=== PATIENT | male | born 1955 | race Caucasian/White ===

== ENCOUNTER 2019-06-08 10:44 | Emergency (ER) | payer OTHER, SELFPAY ==
[2019-06-08 10:52] VITALS: BP 137/53; PULSE 66; RESP 20; TEMP 36.9; O2SAT 99
--- NOTE | 2019-06-08 11:07 | ED.URI ---
HPI - URI/Sore Throat General Chief Complaint: Upper Respiratory Infection Stated Complaint: aches andcough Time Seen by Provider: 06/08/19 11:07 Source: patient Mode of arrival: ambulatory Limitations: no limitations History of Present Illness HPI Narrative: Roland Salas is a 63 yo male with a PMH of diabetes, GERD, cirrhosis, HTN, who comes to urgent care with complaints of cough and body aches. No fever. Blood sugar has been fluctuating over the last 24 hours Related Data Home Medications Medication Instructions Recorded Confirmed insulin asp prt-insulin aspart 1 sliding scale dose SUBCUT 06/08/19 06/08/19 [Novolog Mix 70-30 U-100 Insuln] USEASDIRECTD insulin detemir U-100 [Levemir 40 unit SUBCUT QAM 06/08/19 06/08/19 U-100 Insulin] insulin detemir U-100 [Levemir 70 unit SUBCUT QPM 06/08/19 06/08/19 U-100 Insulin] lisinopril-hydrochlorothiazide 1 tablet PO DAILY 06/08/19 06/08/19 pantoprazole 40 mg PO HS 06/08/19 06/08/19 Allergies Allergy/AdvReac Type Severity Reaction Status Date / Time gabapentin AdvReac Unknown Dizziness Verified 06/08/19 11:13 meperidine AdvReac Unknown Vomiting Verified 06/08/19 11:13 rosuvastatin AdvReac Unknown Bradycardia Verified 06/08/19 11:13 Review of Systems Review of Systems: Narrative: CONSTITUTIONAL: Denies fever, chills, sweats. EYES: Denies visual changes, redness, discharge. ENT: has rhinorrhea, congestion, mild sore throat, otalgia. CARDIOVASCULAR: Denies chest pain, palpitations, edema. RESPIRATORY: Denies dyspnea, wheezing, mild cough GASTROINTESTINAL: Denies abdominal pain, nausea, vomiting, diarrhea. GENITOURINARY: Denies dysuria, hematuria, abnormal discharge SKIN: Denies rash or itching. NEUROLOGIC: Denies numbness, or focal weakness. PSYCHIATRIC: Denies anxiety or depression. [facility] Family History Family History Father Patient's father is in good health Sibling Patient's brother is in good health Family history of arthritis Social History Social History Smoking status: Never smoker Alcohol intake: never Comments At time of signature, I agree with nursing past medical, surgical, social and family history. There is no relevant family history pertinent to the presenting complaint. Exam Narrative: Exam Narrative: GENERAL: This is a well-nourished, well-developed patient, in mild distress. Looks pale. Ill appearing HEAD: normocephalic, atraumatic. EYES: Sclera clear/white. Vision is grossly intact. EARS: External ears normal, n. Hearing grossly intact. NOSE: External nose normal with no obvious nasal discharge, nares without redness, no rhinorrhea. THROAT: Mucous membranes moist, posterior pharynx c erythema NECK: Neck supple, non-tender without lymphadenopathy, masses or thyromegaly. CARDIOVASCULAR: Regular rate and rhythm without murmurs, gallops, or rubs. RESPIRATORY: Clear to auscultation. Breath sounds equal bilaterally. No wheezes, rales, or rhonchi. GASTROINTESTINAL: Abdomen soft, non-tender, abdominal distention. SKIN: warm, intact with no suspicious lesions or rash, good texture and turgor. NEURO: awake, alert, and oriented to person, place and time. There were no obvious focal neurologic abnormalities. Steady gait EXTREMITIES: Normal range of motion. No edema. BACK: Nontender without deformity or crepitance. . Course Course Emergency Course: Influenza A+ Started on Tamiflu given prescription for Xofluza if affordable, cough medicine, Coricidin HP Vital Signs Vital signs: Vital Signs Temperature 98.4 F 06/08/19 10:52 Pulse Rate 66 06/08/19 10:52 Respiratory Rate 20 06/08/19 10:52 Blood Pressure 137/53 L 06/08/19 10:52 Pulse Oximetry 99 06/08/19 10:52 Temperature 98.4 F 06/08/19 10:52 Pulse Rate 66 06/08/19 10:52 Respiratory Rate 20 06/08/19 10:52 Blood Pressure 137/53 L 06/08/19
== END 2019-06-08 11:22 | disposition home or self-care (01) ==
PROVIDERS: Emergency Provider Nurse Practitioner; PCP Family Medicine
DX: J10.1 Influenza due to other identified influenza virus with other respiratory manifestations (principal); E11.9 Type 2 diabetes mellitus without complications; K21.9 Gastro-esophageal reflux disease without esophagitis; I10 Essential (primary) hypertension; K74.60 Unspecified cirrhosis of liver
CPT/HCPCS: 87804; 99213; G0463

== ENCOUNTER 2019-08-07 09:47 | Outpatient (CLI) | payer OTHER, SELFPAY ==
[2019-08-07 10:21] LABS: Alanine Aminotransferase 39 U/L (4-50); Albumin Level 3.6 g/dL (3.5-5.1); Alkaline Phosphatase 89 U/L (38-126); Aspartate Amino Transferase 43 U/L (17-59); Bilirubin,Total 1.2 mg/dL (0.2-1.3); Blood Urea Nitrogen 17 mg/dL (9-20); Calcium 8.5 mg/dL (8.4-10.2); Carbon Dioxide 24 mmol/L (22-30); Chloride 106 mmol/L (98-107); Estimated Glomerular Filt Rate > 60; Glucose 218 mg/dL (75-110); Potassium 4.3 mmol/L (3.4-5.0); Sodium 135 mmol/L (137-145)
[2019-08-07 10:30] LABS: Hemoglobin A1C 9.6 % (<5.7)
[2019-08-07 10:34] LABS: Erythrocyte Sedimentation Rate 122 mm/hr (0-20)
== END 2019-08-07 09:48 | disposition home or self-care (01) ==
PROVIDERS: PCP Family Medicine; Visit Provider Family Medicine
DX: E11.9 Type 2 diabetes mellitus without complications (principal); I10 Essential (primary) hypertension; R11.0 Nausea
CPT/HCPCS: 36415; 80053; 83036; 85652

== ENCOUNTER 2019-08-10 09:42 | Outpatient (CLI) | payer OTHER, SELFPAY ==
--- NOTE | ~2019-08-10 | CT_ITS ---
EXAMINATION: CT abdomen pelvis w con DATE: 08/10/2019 10:23 INDICATION: Nausea. Weight loss. Elevated ESR. TECHNIQUE: Computed tomography (CT) of the abdomen and pelvis was performed with 100 cc Omnipaque 350 intravenous contrast. Automated exposure control and iterative reconstruction technique were employe d. Exam dose: 886.93 mGy-cm total exam DLP. COMPARISON: None. FINDINGS: The lung bases are clear. Normal heart size. No pericardial or pleural effusion. There is diffuse heterogeneous density of the liver. There is hepatic surface nodularity. The finding s are consistent with cirrhosis. The gallbladder is present. No bile duct or pancreatic duct dilatation is noted. No pancreatic mass l esion or calcification. There is splenomegaly, spleen measuring approximately 17.7 cm height. Normal morphology of the adrenal glands. 7 mm right renal cortical cyst. No solid renal space-occupying mass lesion or urinary tract calculus or hydroureteronephrosis is detected. There is atherosclerotic calcification of the abdominal aorta and branches; no abdominal aortic aneur ysm. No intraperitoneal or retroperitoneal or pelvic mass lesion or adenopathy or ascites. There is prostate enlargement and calcification and mild diffuse bladder wall thickening. There are s mall nonspecific free fluid collection in the lower dependent pelvis. No CT evidence of appendicitis.. Minimal diverticulosis of the colon; no CT evidence of diverticuliti s. No bowel obstruction or intraperitoneal free air. Small fat-containing umbilical hernia. Small right inguinal fat-containing hernia. Included skeletal structures are unremarkable. IMPRESSION: Cirrhosis and splenomegaly Reviewed, dictated and finalized at [facility]. Reviewed, dictated and finalized at [facility]. IMPRESSION: Cirrhosis and splenomegaly
[2019-08-10 10:58] LABS: Basophils Percent Auto 0.6 % (0.2-1.2); Eosinophils Absolute Auto 0.1 K/mm3 (0-0.3); Eosinophils Percent Auto 2.7 % (0-4.4); Hematocrit 33.8 % (42.0-52.0); Hemoglobin 11.7 g/dL (14.0-18.0); Immature Granulocyte Absolute 0.02 K/mm3 (0.00-0.031); Immature Granulocyte Percent A 0.6 % (0-0.5); Lymphocytes Absolute Auto 0.81 K/mm3 (0.9-3.2); Lymphocytes Percent Auto 24.4 % (18.3-44.2); Mean Corpuscular HGB Conc 34.6 g/dl (32-36); Mean Corpuscular Hemoglobin 30.6 pg (26-34); Mean Corpuscular Volume 88.5 fl (80-100); Mean Platelet Volume 12.1 fl (7.4-10.4); Monocytes Absolute Auto 0.3 K/mm3 (0.1-0.6); Neutrophils Absolute Auto 2.1 K/mm3 (1.3-6.7); Neutrophils Percent Auto 62.7 % (45.5-73.1); Platelet Count Result 70 k/mm3 (150-375); Red Blood Count 3.82 M/mm3 (4.6-6.20); Red Cell Distribution Width 12.8 % (11.5-14.5); White Blood Count 3.3 K/mm3 (4.5-10.0)
[2019-08-10 11:11] LABS: Ammonia 75 umol/L (9-30)
[2019-08-15 16:23] LABS: GGT 100 U/L (3-70)
== END 2019-08-10 09:43 | disposition home or self-care (01) ==
PROVIDERS: PCP Family Medicine; Visit Provider Family Medicine
DX: K74.60 Unspecified cirrhosis of liver (principal); R11.0 Nausea; R63.4 Abnormal weight loss; R70.0 Elevated erythrocyte sedimentation rate; R25.1 Tremor, unspecified; I10 Essential (primary) hypertension; R16.1 Splenomegaly, not elsewhere classified
CPT/HCPCS: 36415; 74177; 82140; 82977; 85025; Q9967

== ENCOUNTER 2019-08-27 14:03 | Emergency (ER) | payer OTHER, SELFPAY ==
--- NOTE | ~2019-08-27 | XR_ITS ---
EXAMINATION: XR ribs LT 2V w CXR 2V INDICATION: Left rib pain TECHNIQUE: Frontal and lateral views of the chest and 3 views of the left ribs were obtained. COMPARISON: None. FINDINGS: The lungs are free of acute opacities. There is no pleural effusion or pneumothorax. The ca rdiomediastinal silhouette is normal. The visualized bones and soft tissues are unremarkable. No disp laced rib fracture is identified. IMPRESSION: 1. No acute cardiopulmonary abnormality or evidence of displaced rib fracture. Reviewed, dictated and finalized at location [facility].
[2019-08-27 14:10] VITALS: BP 141/63; PULSE 71; RESP 15; TEMP 37.5; O2SAT 97
[2019-08-27 14:14] VITALS: RESP 17; O2SAT 97
--- NOTE | 2019-08-27 14:35 | PC.NURSE ---
PT BACK FROM RADIOLOGY AT THIS TIME.
--- NOTE | 2019-08-27 15:26 | ED.GENADULT ---
HPI - General Adult General Chief complaint: Unspecified Stated complaint: rib pain Time Seen by Provider: 08/27/19 15:06 Source: patient Mode of arrival: ambulatory Limitations: no limitations History of Present Illness HPI narrative: This patient is a 63 year old male who presents for evaluation of left rib pain. Patient states prior to arrival he tripped and he fell onto his left side. He states he fell onto his left arm and rib. His only complaint of pain to left lateral rib with movement and inspiration. He denies hitting his head or LOC. He does not take anticoaugulations. He denies sob. Related Data Home Medications Medication Instructions Recorded Confirmed lisinopril-hydrochlorothiazide 1 tablet PO DAILY 06/08/19 06/17/19 Allergies Allergy/AdvReac Type Severity Reaction Status Date / Time gabapentin AdvReac Unknown Dizziness Verified 08/27/19 14:17 meperidine AdvReac Unknown Vomiting Verified 08/27/19 14:17 rosuvastatin AdvReac Unknown Bradycardia Verified 08/27/19 14:17 Review of Systems Review of Systems: All systems reviewed & are unremarkable except as noted in HPI and below Constitutional: Constitutional: Denies chills and Denies fever(s) Respiratory: Respiratory: Denies cough and Denies dyspnea Gastrointestinal: Gastrointestinal: Denies abdominal pain Musculoskeletal: Musculoskeletal: Denies back pain and Denies arthralgias PMFSH Past Medical History Medical History (Updated 08/27/19 @ 15:32 by Lucy Stephen MD) Cirrhosis Diabetes Diabetes with retinopathy 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 Esophageal varices GERD (gastroesophageal reflux disease) High cholesterol HTN (hypertension) Surgical History Surgical History (Updated 08/27/19 @ 20:00 by Lucy Stephen MD) Hx of appendectomy Hx of cholecystectomy Social History Social History (Updated 08/09/19 @ 20:40 by Lucy Kilpatrick MD) Social History: Smoking status: Never smoker Second hand tobacco smoke exposure: No Alcohol intake: former Substance use: never Substance use type: does not use Gender identity (if verbalized by the patient): Male Exam Narrative: Exam Narrative: GENERAL: Well-appearing, well-nourished, and in no acute distress. HEAD: Normocephalic, atraumatic EYES: PERRLA and EOMI, conjunctiva clear without discharge NECK: Supple, without lymphadenopathy or mass RESPIRATORY: No respiratory distress, Airway patent, Respirations non-labored, Clear to auscultation without rales, rhonchi or wheeze, TTP left anterior lateral rib HEART: Regular rate and rhythm. No murmur heard. Normal peripheral pulses. ABDOMEN: Soft, nontender, nondistended, normal active bowel sounds. No masses. No rebound or guarding, No organomegaly. EXTREMITIES: No edema, normal strength with full range of motion. SKIN: Warm, dry, normal color without rash NEURO: Alert and oriented x3. CN 2-12 grossly intact. No focal deficits. PSYCH: Normal mood and affect. Course Reevaluation(s) Reevaluation #1: I have discussed with patient that was not found to have displaced rib fracture but he likely does have broken ribs. Date: 08/27/19 Time: 15:29 Vital Signs Vital signs: Vital Signs Temperature 99.5 F 08/27/19 14:10 Pulse Rate 71 08/27/19 14:10 Respiratory Rate 15 08/27/19 14:10 Blood Pressure 141/63 H 08/27/19 14:10 Pulse Oximetry 97 08/27/19 14:10 Temperature 99.1 F 08/27/19 15:42 Pulse Rate 65 08/27/19 15:42 Respiratory Rate 16 08/27/19 15:42 Blood Pressure 127/67 08/27/19 15:42 Pulse Oximetry 97 08/27/19 15:42 Medical Decision Making Vital Signs Vital Signs: Vital Signs Temperature 99.5 F 08/27/19 14:10 Pulse Rate 71 08/27/19 14:10 Respiratory Rate 15 08/27/19 14:10 Blood Pressure 141/63 H 08/27/19 14:10 Pulse Oximetry 97 08/27/19 14:10 Temperature 99.1 F 08/27/19 15:42 Pulse Rate 65 08/27/19 15:42 Res
[2019-08-27 15:42] VITALS: BP 127/67; PULSE 65; RESP 16; TEMP 37.3; O2SAT 97
== END 2019-08-27 16:04 | disposition home or self-care (01) ==
PROVIDERS: Emergency Provider General Practice; PCP Family Medicine
DX: R07.81 Pleurodynia (principal); K74.60 Unspecified cirrhosis of liver; E11.319 Type 2 diabetes mellitus with unspecified diabetic retinopathy without macular edema; K21.9 Gastro-esophageal reflux disease without esophagitis; I10 Essential (primary) hypertension; E78.00 Pure hypercholesterolemia, unspecified
CPT/HCPCS: 71046; 71100; 99283

== ENCOUNTER 2019-10-18 17:07 | Outpatient (CLI) | payer OTHER, SELFPAY ==
[2019-10-18 17:56] LABS: Basophils Percent Auto 0.4 % (0.2-1.2); Eosinophils Absolute Auto 0.1 K/mm3 (0-0.3); Eosinophils Percent Auto 2.5 % (0-4.4); Hematocrit 34.2 % (42.0-52.0); Hemoglobin 11.5 g/dL (14.0-18.0); Immature Granulocyte Absolute 0.01 K/mm3 (0.00-0.031); Immature Granulocyte Percent A 0.2 % (0-0.5); Immature Platelet Fraction Pct 7.9 % (0.9-11.2); Lymphocytes Absolute Auto 0.79 K/mm3 (0.9-3.2); Lymphocytes Percent Auto 17.7 % (18.3-44.2); Mean Corpuscular HGB Conc 33.6 g/dl (32-36); Mean Corpuscular Hemoglobin 28.5 pg (26-34); Mean Corpuscular Volume 84.9 fl (80-100); Mean Platelet Volume 13.2 fl (7.4-10.4); Monocytes Absolute Auto 0.4 K/mm3 (0.1-0.6); Monocytes Percent Auto 9.2 % (2.6-8.5); Neutrophils Absolute Auto 3.1 K/mm3 (1.3-6.7); Platelet Count Result 83 k/mm3 (150-375); Red Blood Count 4.03 M/mm3 (4.6-6.20); Red Cell Distribution Width 14.1 % (11.5-14.5); White Blood Count 4.5 K/mm3 (4.5-10.0)
[2019-10-18 18:05] LABS: Ammonia 46 umol/L (9-30)
[2019-10-18 18:05] LABS: Creatine Kinase 73 U/L (55-170); Hemoglobin A1C 9.4 % (<5.7)
[2019-10-18 18:32] LABS: Erythrocyte Sedimentation Rate 92 mm/hr (0-20)
== END 2019-10-18 17:08 | disposition home or self-care (01) ==
LOC: ANHLAB 17:09
PROVIDERS: PCP Family Medicine; Visit Provider Family Medicine
DX: E11.3299 Type 2 diabetes mellitus with mild nonproliferative diabetic retinopathy without macular edema, unspecified eye (principal); M79.10 Myalgia, unspecified site; K70.30 Alcoholic cirrhosis of liver without ascites; D69.6 Thrombocytopenia, unspecified; R70.0 Elevated erythrocyte sedimentation rate; R16.1 Splenomegaly, not elsewhere classified
CPT/HCPCS: 36415; 82140; 82550; 83036; 85025; 85055; 85652

== ENCOUNTER 2019-10-23 15:02 | Outpatient (CLI) | payer OTHER, SELFPAY ==
[2019-10-23 15:26] LABS: Basophils Percent Auto 0.5 % (0.2-1.2); Eosinophils Absolute Auto 0.1 K/mm3 (0-0.3); Eosinophils Percent Auto 3.4 % (0-4.4); Immature Granulocyte Absolute 0.01 K/mm3 (0.00-0.031); Immature Granulocyte Percent A 0.2 % (0-0.5); Lymphocytes Absolute Auto 0.83 K/mm3 (0.9-3.2); Lymphocytes Percent Auto 20.1 % (18.3-44.2); Mean Corpuscular HGB Conc 33.3 g/dl (32-36); Mean Corpuscular Hemoglobin 27.9 pg (26-34); Mean Corpuscular Volume 83.6 fl (80-100); Mean Platelet Volume 12.5 fl (7.4-10.4); Monocytes Absolute Auto 0.4 K/mm3 (0.1-0.6); Monocytes Percent Auto 9.7 % (2.6-8.5); Neutrophils Absolute Auto 2.7 K/mm3 (1.3-6.7); Neutrophils Percent Auto 66.1 % (45.5-73.1); Platelet Count Result 73 k/mm3 (150-375); Red Blood Count 3.59 M/mm3 (4.6-6.20); Red Cell Distribution Width 13.8 % (11.5-14.5); White Blood Count 4.1 K/mm3 (4.5-10.0)
[2019-10-23 16:42] LABS: Iron 36 ug/dL (49-181)
[2019-10-23 16:46] LABS: Alanine Aminotransferase 34 U/L (4-50); Albumin Level 3.5 g/dL (3.5-5.1); Alkaline Phosphatase 98 U/L (38-126); Aspartate Amino Transferase 37 U/L (17-59); Bilirubin,Total 0.9 mg/dL (0.2-1.3); Blood Urea Nitrogen 20 mg/dL (9-20); Calcium 9.2 mg/dL (8.4-10.2); Carbon Dioxide 21 mmol/L (22-30); Chloride 102 mmol/L (98-107); Creatine Kinase 77 U/L (55-170); Estimated Glomerular Filt Rate > 60; Glucose 221 mg/dL (75-110); Lactate Dehydrogenase 357 U/L (313-618); Potassium 4.2 mmol/L (3.4-5.0); Sodium 132 mmol/L (137-145)
[2019-10-23 17:11] LABS: Percent Iron Saturation 9 % (20-50)
[2019-10-23 17:51] LABS: Folic Acid 15.2 ng/mL (2.76->20)
[2019-10-24 11:42] LABS: Erythrocyte Sedimentation Rate 81 mm/hr (0-20)
[2019-10-30 18:46] LABS: Alpha Fetoprotein Tumor Marker 3.5 ng/mL (<6.1)
== END 2019-10-23 15:03 | disposition home or self-care (01) ==
PROVIDERS: PCP Family Medicine; Visit Provider Internal Medicine Hematology & Oncology
DX: K70.30 Alcoholic cirrhosis of liver without ascites (principal); M62.50 Muscle wasting and atrophy, not elsewhere classified, unspecified site; D64.9 Anemia, unspecified
CPT/HCPCS: 36415; 80053; 82105; 82550; 82607; 82728; 82746; 83540; 83550; 83615; 84443; 85025; 85652

== ENCOUNTER 2019-10-31 08:02 | Outpatient (CLI) | payer OTHER, SELFPAY ==
--- NOTE | ~2019-10-31 | CT_ITS ---
EXAMINATION:CT chest w con DATE: 10/31/2019 08:34 INDICATION: Cough. TECHNIQUE: Computed tomography (CT) of the chest was performed with 75 mL Omnipaque 350 intravenous c ontrast. Automated exposure control and iterative reconstruction technique were employed. The dose-le ngth product (DLP) was 407.80 mGy-cm. COMPARISON: CT abdomen and pelvis 08/10/2019 FINDINGS: There is no pneumonia or pleural effusion. The heart size is normal. There are coronary art compa calcifications. No pericardial effusion. The liver demonstrates surface nodularity, consistent wi th cirrhosis. There is mild splenomegaly, consistent with portal venous hypertension. Paraesophageal varices are noted. There is a paraumbilical portacaval shunt. There is mild thoracic spondylosis. IMPRESSION: 1. Cirrhosis of the liver with portal venous hypertension. Reviewed, dictated and finalized at location [facility].
== END 2019-10-31 08:03 | disposition home or self-care (01) ==
PROVIDERS: PCP Family Medicine; Visit Provider Internal Medicine Hematology & Oncology
DX: R05 Cough (principal); K70.30 Alcoholic cirrhosis of liver without ascites
CPT/HCPCS: 71260; Q9967

== ENCOUNTER 2019-11-17 01:55 | Outpatient (CLI) | payer OTHER, SELFPAY ==
[2019-11-17 22:22] LABS: SARS-CoV-2 RNA PCR Negative
== END 2019-11-17 01:56 | disposition home or self-care (01) ==
LOC: ANHCOVIDDT 01:56
PROVIDERS: PCP Family Medicine; Visit Provider Internal Medicine Gastroenterology
DX: Z01.812 Encounter for preprocedural laboratory examination (principal); Z20.828 Contact with and (suspected) exposure to other viral communicable diseases
CPT/HCPCS: 87635; C9803; U0003

== ENCOUNTER 2019-11-20 04:21 | Day surgery (SDC) | payer MEDICARE, OTHER, SELFPAY ==
[2019-11-14 14:48] VITALS: BMI 28.4
[2019-11-20 06:40] LABS: Glucose Point of Care 234 (65-105)
[2019-11-20] MEDS: LACTATED RINGERS 1,000 ML 150 ML IV CONT (06:43)
[2019-11-20 06:45] VITALS: BP 150/60; PULSE 86; RESP 18; TEMP 37; O2SAT 98
--- NOTE | 2019-11-20 07:01 | WPDANESEPPF ---
Anes - Initial Pre Proc Eval Procedure: Operation Date: 11/20/19 07:30 Proposed Procedures p Esophagogastroduodenoscopy & Screening Colonoscopy - John Whitaker MD Date/Time: 11/20/19 07:01 Surgeon: John Whitaker MD Pre Op Diagnosis: varices, neoplasm screening Patient Data Age: 63 Gender: M Height: 5 ft 10 in Weight: 89.3 kg Last Vital Signs Temp 98.6 F 11/20/19 06:45 Pulse 86 11/20/19 06:45 Resp 18 11/20/19 06:45 BP 150/60 H 11/20/19 06:45 Pulse Ox 98 11/20/19 06:45 Allergies Allergy/AdvReac Type Severity Reaction Status Date / Time rosuvastatin Allergy Unknown Bradycardia Verified 11/20/19 06:33 [facility] AdvReac Severe nausea Verified 11/20/19 06:33 gabapentin AdvReac Unknown Dizziness Verified 11/20/19 06:33 meperidine AdvReac Unknown Vomiting Verified 11/20/19 06:33 Home Medications Medication Instructions Recorded Confirmed Type pantoprazole 40 mg tablet,delayed 40 mg PO HS #90 tablet 08/28/19 11/20/19 Rx release lisinopril 20 1 tablet PO DAILY #90 tablet 09/03/19 11/20/19 Rx mg-hydrochlorothiazide 12.5 mg tablet promethazine 25 mg tablet 25 mg PO TID PRN #30 tablet 09/10/19 11/20/19 Rx insulin aspart U-100 100 unit/mL See Rx Instructions SUB-Q TID #20 11/15/19 11/20/19 Rx (3 mL) subcutaneous pen ml insulin detemir U-100 100 unit/mL 70 unit SUB-Q BID 90 Days #126 ml 11/15/19 11/20/19 Rx (3 mL) subcutaneous pen lactulose 10 gram/15 mL oral 10 gm PO BID 90 Days #2700 ml 11/15/19 11/20/19 Rx solution Laboratory Tests 11/20/19 06:39 POC Capillary Glucose 234 mg/dl H mg/dl (65-105) Patient hx anesthesia problems: none Family hx anesthesia problems: none PMFSH Social History Social History (Updated 11/12/19 @ 09:35 by Day Benson) Social History: Smoking status: Never smoker Second hand tobacco smoke exposure: No Alcohol intake: former Substance use: never Substance use type: does not use Gender identity (if verbalized by the patient): Male Anes - Eval Final PreProcedure Day of Procedure 11/20/19 07:01 Patient weight: normal Heart: regular rate and rhythm Lungs: clear to auscultation Airway: Mallampati scale class III Neurological: alert and oriented Last oral intake: >/= 8 hours ASA classification: III Emergent: no Anesthetic plan: proceed Anesthesia type and monitoring: general GIVS and standard monitoring Informed Consent: The patient's anesthetic plan and its attendant risks and benefits were discussed with the patient/family/POA. Questions were solicited and answers provided to the satisfaction of the patient/family/POA.
--- NOTE | 2019-11-20 07:36 | PM.HPGS ---
History of Present Illness History of Present Illness Consent: Risks, benefits, and alternatives have been discussed and questions answered. Patient agrees to proceed with procedure. Chief complaint: varices, neoplasm screening Narrative: Roland Salas is a 63 year old male with history of cirrhosis and remote GIB, also needs colon screening Review of Systems Constitutional: Constitutional: Denies headache(s) and Denies weakness Eyes: Eyes: Denies blurry vision ENT: Reports Normal hearing present, Denies headache(s) and Denies neck pain Cardiovascular: Cardiovascular: Denies chest pain and Denies dyspnea Respiratory: Respiratory: Denies dyspnea Gastrointestinal: Gastrointestinal: Reports no additional gastrointestinal complaints Genitourinary: Genitourinary: Denies dysuria Musculoskeletal: Musculoskeletal: Denies neck pain Integumentary/Breasts: Skin/Breast: Denies dry skin Neurologic: Reports Normal hearing present, Denies headache(s) and Denies weakness Psychiatric: Psychiatric: Denies anxiety Endocrine: Endocrine: Denies change in body appearance Hematologic/Lymphatic: Hematologic/Lymphatic: Denies easy bleeding Allergic/Immunologic: Allergic/Immunologic: Denies urticaria [facility] Social History Social History (Updated 11/12/19 @ 09:35 by Day Benson) Social History: Smoking status: Never smoker Second hand tobacco smoke exposure: No Alcohol intake: former Substance use: never Substance use type: does not use Gender identity (if verbalized by the patient): Male Meds Home Medications and Allergies Home Medications Medication Instructions Recorded Confirmed Type pantoprazole 40 mg tablet,delayed 40 mg PO HS #90 tablet 08/28/19 11/20/19 Rx release lisinopril 20 1 tablet PO DAILY #90 tablet 09/03/19 11/20/19 Rx mg-hydrochlorothiazide 12.5 mg tablet promethazine 25 mg tablet 25 mg PO TID PRN #30 tablet 09/10/19 11/20/19 Rx insulin aspart U-100 100 unit/mL See Rx Instructions SUB-Q TID #20 11/15/19 11/20/19 Rx (3 mL) subcutaneous pen ml insulin detemir U-100 100 unit/mL 70 unit SUB-Q BID 90 Days #126 ml 11/15/19 11/20/19 Rx (3 mL) subcutaneous pen lactulose 10 gram/15 mL oral 10 gm PO BID 90 Days #2700 ml 11/15/19 11/20/19 Rx solution Allergies Allergy/AdvReac Type Severity Reaction Status Date / Time rosuvastatin Allergy Unknown Bradycardia Verified 11/20/19 06:33 dulaglutide [From Trul[facility]] AdvReac Severe nausea Verified 11/20/19 06:33 gabapentin AdvReac Unknown Dizziness Verified 11/20/19 06:33 meperidine AdvReac Unknown Vomiting Verified 11/20/19 06:33 Vital Signs Vital Signs - 24 hr 11/20/19 06:45 Temperature 98.6 F Pulse Rate 86 Respiratory Rate 18 Blood Pressure 150/60 H Pulse Oximetry 98 Exam Const: General: comfortable and no acute distress HENMT: General nose exam: Normal nares present Eyes: General: appearance normal, both eyes and all related structures Neck: Neck: no JVD Resp: Auscultation: clear to auscultation bilaterally Cardio: Rate: regular rate Rhythm: regular rhythm GI: Inspection: non-distended GI Palp: Yes Soft to palpation Skin: General skin exam: normal color Neuro: General: gait normal Speech: normal speech Extrem: General: normal to inspection Psych: Mental Status: mental status grossly normal Assessment and Plan Assessment and plan (1) Cirrhosis: Code(s): K74.60 - Unspecified cirrhosis of liver Status: Acute Assessment and Plan: will proceed with egd to assess if varices (2) 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
[2019-11-20 08:15] VITALS: BP 127/61; PULSE 75; RESP 23; O2SAT 98
[2019-11-20 08:25] VITALS: BP 134/68; PULSE 72; RESP 20; O2SAT 99
[2019-11-20 08:35] VITALS: BP 150/72; PULSE 74; RESP 16; O2SAT 100
[2019-11-20 08:48] LABS: Glucose Point of Care 229 (65-105)
== END 2019-11-20 08:56 | disposition home or self-care (01) ==
PROVIDERS: PCP Family Medicine; Visit Provider Internal Medicine Gastroenterology
PROC: 0DJ08ZZ Inspection of Upper Intestinal Tract, Via Natural or Artificial Opening Endoscopic (ICD-10-PCS; CPT 43235; principal; 2019-11-20 07:30)
DX: Z12.11 Encounter for screening for malignant neoplasm of colon (principal); D12.2 Benign neoplasm of ascending colon; K64.8 Other hemorrhoids; K74.60 Unspecified cirrhosis of liver; E11.3299 Type 2 diabetes mellitus with mild nonproliferative diabetic retinopathy without macular edema, unspecified eye; D69.6 Thrombocytopenia, unspecified; K29.70 Gastritis, unspecified, without bleeding; K31.7 Polyp of stomach and duodenum
CPT/HCPCS: 43235; 45380; 88305; J2704; J7120

== ENCOUNTER 2019-12-19 11:15 | Outpatient (CLI) | payer OTHER, SELFPAY ==
--- NOTE | ~2019-12-19 | US_ITS ---
US right upper quadrant INDICATION: Cirrhosis PROCEDURE: Realtime right upper abdominal ultrasound. COMPARISON: No prior studies for comparison. FINDINGS: The pancreas is normal without focal mass or pancreatic ductal dilation. Liver echotexture is diffusely heterogeneous with nodular liver surface, compatible with cirrhosis. There is probable mild intrahepatic biliary dilatation. There is normal directional flow in the portal vein. The gallbladder is normal without stones, gallbladder wall thickening or pericholecystic fluid. Comm on bile duct measures 5 mm. No sonographic Felix's sign. IMPRESSION: 1: Coarse and heterogeneous echotexture with nodular liver surface, compatible with cirrhosis. Probab le mild intrahepatic biliary dilatation. Reviewed, dictated and finalized at [facility]. IMPRESSION: 1: Coarse and heterogeneous echotexture with nodular liver surface, compatible with cirrhosis. Probable mild intrahepatic biliary dilatation.
[2019-12-19 12:06] LABS: Basophils Percent Auto 0.8 % (0.2-1.2); Eosinophils Absolute Auto 0.2 K/mm3 (0-0.3); Eosinophils Percent Auto 3.9 % (0-4.4); Hematocrit 34.2 % (42.0-52.0); Immature Granulocyte Absolute 0.03 K/mm3 (0.00-0.031); Immature Granulocyte Percent A 0.8 % (0-0.5); Lymphocytes Absolute Auto 0.79 K/mm3 (0.9-3.2); Lymphocytes Percent Auto 20.4 % (18.3-44.2); Mean Corpuscular HGB Conc 32.2 g/dl (32-36); Mean Corpuscular Hemoglobin 26.2 pg (26-34); Mean Corpuscular Volume 81.4 fl (80-100); Mean Platelet Volume 11.4 fl (7.4-10.4); Monocytes Absolute Auto 0.3 K/mm3 (0.1-0.6); Neutrophils Absolute Auto 2.6 K/mm3 (1.3-6.7); Neutrophils Percent Auto 66.1 % (45.5-73.1); Platelet Count Result 79 k/mm3 (150-375); White Blood Count 3.9 K/mm3 (4.5-10.0)
[2019-12-19 12:19] LABS: Ammonia 68 umol/L (9-30)
[2019-12-19 12:20] LABS: Hemoglobin A1C 8.5 % (<5.7)
[2019-12-19 12:22] LABS: Alanine Aminotransferase 43 U/L (4-50); Albumin Level 3.7 g/dL (3.5-5.1); Alkaline Phosphatase 99 U/L (38-126); Anion Gap 7 mmol/L (8-16); Aspartate Amino Transferase 60 U/L (17-59); Bilirubin,Total 1.8 mg/dL (0.2-1.3); Blood Urea Nitrogen 18 mg/dL (9-20); CRP < 0.5 mg/dL (<1.0); Calcium 8.9 mg/dL (8.4-10.2); Carbon Dioxide 24 mmol/L (22-30); Chloride 106 mmol/L (98-107); Estimated Glomerular Filt Rate > 60; Glucose 228 mg/dL (75-110); Potassium 4.2 mmol/L (3.4-5.0); Sodium 137 mmol/L (137-145)
[2019-12-19 14:12] LABS: Erythrocyte Sedimentation Rate 67 mm/hr (0-20)
== END 2019-12-19 11:16 | disposition home or self-care (01) ==
PROVIDERS: Physician Assistant; PCP Family Medicine; Visit Provider Internal Medicine Gastroenterology
DX: K74.60 Unspecified cirrhosis of liver (principal); D69.6 Thrombocytopenia, unspecified; R70.0 Elevated erythrocyte sedimentation rate; I10 Essential (primary) hypertension; E11.3299 Type 2 diabetes mellitus with mild nonproliferative diabetic retinopathy without macular edema, unspecified eye
CPT/HCPCS: 36415; 76705; 80053; 82140; 83036; 85025; 85652; 86140

== ENCOUNTER 2019-12-31 11:09 | Observation (INO) | payer MEDICARE, OTHER, SELFPAY ==
--- NOTE | ~2019-12-31 | XR_ITS ---
XR forearm RT 2V DATE: 12/31/2019 13:48 INDICATION: Fall. Right arm injury, pain TECHNIQUE: AP and lateral views COMPARISON: None FINDINGS: There is a prominent dorsal olecranon process spur. There is osteoarthritis at the elbow rosie int. No fracture or dislocation, periosteal reaction or bone destruction. Normal alignment at the elbow an d wrist joints. Arterial calcifications. 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
--- NOTE | ~2019-12-31 | NM_ITS ---
EXAM: NM gastric emptying study DATE: 01/01/2020 13:18 INDICATION: Vomiting. Diabetes. TECHNIQUE: A gastric emptying study was performed using the methodology of Maddie SOMERS, et al. J Nucl Med 2007; 48:568-572. The patient was given a meal consisting of 2 scrambled eggs labeled with 1.024 mCi Tc-99m sulfur colloid, 2 slices of toast, two packages of jam, and approximately 120 mL of water . Simultaneous anterior and posterior 1-min images of the abdomen were obtained with the patient supi ne at multiple time points over a total period of 4 hours. The geometric mean of anterior and posteri or views was determined, and the percentage retention was calculated for each time point. COMPARISON: CT abdomen and pelvis 08/10/2019 FINDINGS: Gastric retention of the radiotracer-labeled meal was 46%, 27%, and 6% at the 1-hour, 2-ho ur, and 4-hour time points, respectively. With this technique, apparent rapid gastric emptying is sug gested by <30% gastric retention at 1 hour. Delayed gastric emptying is defined by gastric retention of >90% at 1 hour, >60% retention at 2 hours, or >10% retention at 4 hours. IMPRESSION: 1. Normal gastric emptying. Reviewed, dictated and finalized at location A. IMPRESSION: 1. Normal gastric emptying.
--- NOTE | ~2019-12-31 | XR_ITS ---
XR hip LT 2V w AP pelvis DATE: 12/31/2019 13:48 INDICATION: Fall. Left hip pain. TECHNIQUE: AP pelvis. AP and lateral views of left hip COMPARISON: None FINDINGS: Moderate osteopenia. No pelvic fracture or bone destruction is detected. Normal alignment a t the pubic symphysis and sacroiliac joints. The hip joint spaces are symmetric and well preserved. No fracture or dislocation, avascular necrosis or bone destruction of the left hip. IMPRESSION: Moderate osteopenia No pelvic fracture or left hip fracture or dislocation Reviewed, dictated and finalized at location B.
[2019-12-31 11:16] VITALS: BP 150/65; PULSE 70; RESP 14; TEMP 36.6; O2SAT 100
[2019-12-31 11:34] LABS: Basophils Percent Auto 0.5 % (0.2-1.2); Eosinophils Absolute Auto 0.2 K/mm3 (0-0.3); Eosinophils Percent Auto 4.1 % (0-4.4); Hemoglobin 12.3 g/dL (14.0-18.0); Immature Granulocyte Absolute 0.01 K/mm3 (0.00-0.031); Immature Granulocyte Percent A 0.3 % (0-0.5); Immature Platelet Fraction Pct 6.4 % (0.9-11.2); Lymphocytes Absolute Auto 0.84 K/mm3 (0.9-3.2); Mean Corpuscular HGB Conc 33.2 g/dl (32-36); Mean Corpuscular Hemoglobin 27.5 pg (26-34); Mean Corpuscular Volume 82.8 fl (80-100); Mean Platelet Volume 12.6 fl (7.4-10.4); Monocytes Absolute Auto 0.3 K/mm3 (0.1-0.6); Monocytes Percent Auto 7.4 % (2.6-8.5); Neutrophils Absolute Auto 2.4 K/mm3 (1.3-6.7); Neutrophils Percent Auto 64.7 % (45.5-73.1); Platelet Count Result 82 k/mm3 (150-375); Red Blood Count 4.47 M/mm3 (4.6-6.20); Red Cell Distribution Width 20.1 % (11.5-14.5); White Blood Count 3.7 K/mm3 (4.5-10.0)
[2019-12-31 11:46] LABS: Ammonia 133 umol/L (9-30)
[2019-12-31 11:47] LABS: Alanine Aminotransferase 39 U/L (4-50); Albumin Level 3.8 g/dL (3.5-5.1); Alkaline Phosphatase 94 U/L (38-126); Anion Gap 8 mmol/L (8-16); Aspartate Amino Transferase 49 U/L (17-59); Bilirubin,Total 2.3 mg/dL (0.2-1.3); Blood Urea Nitrogen 19 mg/dL (9-20); Calcium 9.3 mg/dL (8.4-10.2); Carbon Dioxide 22 mmol/L (22-30); Chloride 108 mmol/L (98-107); Estimated CRCL calculation 109 ml/min; Estimated Glomerular Filt Rate > 60; Glucose 170 mg/dL (75-110); Lipase 113 U/L (23-300); Potassium 4.4 mmol/L (3.4-5.0); Sodium 138 mmol/L (137-145)
[2019-12-31 11:51] LABS: Add Urine Microscopic? YES; Appearance Urine Clear (Clear); Bacteria Urine Trace /hpf; Bilirubin Urine Negative (Negative); Blood Urine Negative (Negative); Color Urine Yellow (Yellow); Glucose Urine UA 2+ mg/dL (Negative); Ketones Urine Negative (Negative); Leukocyte Esterase Ur Negative LEU/UL (Negative); Mucus Urine Rare /lpf; Nitrate Urine Negative (Negative); Protein Urine Negative (Negative); RBC Urine 0-2 /hpf (0-2); Specific Grav Ur 1.014 (1.001-1.035); Squamous Epithelial Cell Urine Rare /hpf (Few); WBC Urine 0-3 /hpf
[2019-12-31 13:25] LABS: INR 1.2; Prothrombin Time 15.1 Seconds (11.1-14.7)
[2019-12-31 13:26] LABS: Partial Thromboplastin Time 33.1 SECONDS (22.3-36.8)
--- NOTE | 2019-12-31 13:33 | ED.GENADULT ---
HPI - General Adult General Chief complaint: Nausea/Vomiting/Diarrhea Stated complaint: THROWING UP DUE TO HIS LIVER AND STUFF Time Seen by Provider: 12/31/19 11:49 Source: patient History of Present Illness HPI narrative: Patient is a 64 y/o male complaining of nausea and vomiting for last 6 months. He states that he vomited 5-10 times during last 24 hours. His vomit is mostly yellow liquid. There is no abdominal pain or diarrhea. There is no alleviating or exacerbating factor. He has history of cirrhosis. He was seen by Dr. Bianka Brand in the past and he states that he was not told of any definitive cause for his vomiting. He can not keep meds down due to vomiting. Of note, he fell last week and he has left hip pain and right forearm pain. Related Data Allergies Allergy/AdvReac Type Severity Reaction Status Date / Time rosuvastatin Allergy Unknown Bradycardia Verified 12/24/19 11:04 dulaglutide [From [facility]] AdvReac Severe nausea Verified 12/24/19 11:04 gabapentin AdvReac Unknown Dizziness Verified 12/24/19 11:04 meperidine AdvReac Unknown Vomiting Verified 12/24/19 11:04 Review of Systems Constitutional: Constitutional: Denies chills, Denies fever(s), Denies headache(s) and Denies weakness Eyes: Eyes: Denies blurry vision ENT: Denies headache(s) and Denies neck pain Cardiovascular: Cardiovascular: Denies chest pain and Denies dyspnea Respiratory: Respiratory: Denies cough and Denies dyspnea Gastrointestinal: Gastrointestinal: Denies abdominal pain, Denies diarrhea, Reports nausea and Reports vomiting Genitourinary: Genitourinary: Denies hematuria and Denies dysuria Musculoskeletal: Musculoskeletal: Denies back pain, Denies neck pain and Reports other (left hip pain and right arm pain) Neurologic: Denies headache(s) and Denies weakness PMFSH Past Medical History Medical History Cirrhosis Diabetes Diabetes with retinopathy 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 Esophageal varices GERD (gastroesophageal reflux disease) High cholesterol HTN (hypertension) Surgical History Surgical History Hx of appendectomy Hx of cholecystectomy Family History Family History Father Patient's father is in good health Sibling Patient's brother is in good health Family history of arthritis Social History Social History Social History: Smoking status: Never smoker Second hand tobacco smoke exposure: No Alcohol intake: former Substance use: never Substance use type: does not use Gender identity (if verbalized by the patient): Male Spiritual care concerns: No Exam Const: General: no acute distress and well developed Orientation/consciousness: oriented to person, oriented to place, oriented to time and patient oriented x3 HENMT: Head: normocephalic Ears: external ears normal General nose exam: Normal external nose present Eyes: General: appearance normal, both eyes and all related structures Conjunctivae: conjunctivae normal Neck: Neck: normal visual inspection and full ROM Chest: Chest palpation & inspection: normal inspection of the chest and no tenderness Resp: Effort & Inspection: normal respiratory effort Auscultation: clear to auscultation bilaterally Cardio: Rate: regular rate Rhythm: regular rhythm GI: GI Palp: No abdominal tenderness and Yes Soft to palpation Skin: General skin exam: normal color and turgor normal Trauma: other (bruise on left buttock) Neuro: General: oriented to person, oriented to place, oriented to time and patient oriented x3 Cognition (Neuro): normal cognition Extrem: General: normal to inspection, full ROM and no pedal edema Psych: Appearance: grossly normal Mental Status: mental status grossly normal Affect: normal affect C
[2019-12-31] MEDS: METOCLOPRAMIDE HCL 10 MG TABLET PO (13:36)
[2019-12-31 14:58] VITALS: BP 142/70; PULSE 64; RESP 18; O2SAT 100
[2019-12-31] MEDS: LACTULOSE 20 GM/30 ML UDC PO ×2 (15:03→20:46)
[2019-12-31 15:51] VITALS: BP 142/70; PULSE 64; RESP 18; O2SAT 100
[2019-12-31 16:05] VITALS: BP 149/70; PULSE 65; RESP 16; TEMP 37.1; O2SAT 98
[2019-12-31 16:51] VITALS: PULSE 65; RESP 16; O2SAT 98; BMI 27.8
[2019-12-31 17:25] LABS: Glucose Point of Care 216 (65-105)
--- NOTE | 2019-12-31 17:25 | PC.NURSE ---
This patient, Roland Salas, was admitted to [facility] [place] Surg Room 313-01. Patient/family oriented to hospital policies and general routines including ID bracelet, bed and alarms, visiting hours, pain management, procedures, bathroom and other care routines, personal items, smoking policy, room service/diet, and visiting hours. Valuables list has been completed. Information on how to activate the Rapid Response Team has been discussed. Patient/Family are encouraged to report perceived risks to care and to ask questions if they do not understand what they are told or what they should do. PT ARRIVED AT [id number]
--- NOTE | 2019-12-31 19:39 | PM.IMHP ---
H&P: HPI History of Present Illness Date/Time: 12/31/19 19:39 Chief complaint: intractable vomiting Narrative: This is a 64 year old Diabetic male with known Cirrhosis which has been thought to be due to previous alcoholism who presented to the hospital with complaints of intermittent nausea and vomiting since June, increased generalized weakness, and multiple recent falls. The patient describes having days where he will get very nauseated and have multiple episodes of vomiting and then the next day he will feel better. The patient has already seen GI, Dr. Gibson for his vomiting and just had an EGD and colonoscopy about 1 month ago which were apparently normal at that time. The patient has been taking his home meds as prescribed. He denies any fevers, chills, coughing, shortness of breath, chest pain, abdominal pain, diarrhea, dysuria, or rectal bleeding. GI has been consulted by ER provider. He was evaluated in the ER today and routine labs demonstrated an elevated ammonia level of 133. He was treated with lactulose which he did keep down and on arrival to the floor the patient ate a salad and drank water without any nausea or vomiting. On my encounter with the patient he has no specific complaints any longer and states that his nausea and vomiting has resolved. The patient does have bruising to his left hip from a recent fall. He believes that he always has mild abdominal distension which hasn't changed recently. No other complaints. 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 Esophageal varices GERD (gastroesophageal reflux disease) High cholesterol HTN (hypertension) Surgical History Surgical History Hx of appendectomy Hx of cholecystectomy Family History Family History Father Patient's father is in good health Sibling Patient's brother is in good health Family history of arthritis Social History Social History Social History: Smoking status: Never smoker Second hand tobacco smoke exposure: No Alcohol intake: former Substance use: never Substance use type: does not use Gender identity (if verbalized by the patient): Male Spiritual care concerns: No Meds Home Medications and Allergies Home Medications Medication Instructions Recorded Confirmed Type pantoprazole 40 mg tablet,delayed 40 mg PO HS #90 tablet 08/28/19 12/31/19 Rx release lisinopril 20 1 tablet PO DAILY #90 tablet 09/03/19 12/31/19 Rx mg-hydrochlorothiazide 12.5 mg tablet insulin aspart U-100 100 unit/mL See Rx Instructions SUB-Q TID #20 11/15/19 12/31/19 Rx (3 mL) subcutaneous pen ml insulin detemir U-100 100 unit/mL 70 unit SUB-Q BID 90 Days #126 ml 11/15/19 12/31/19 Rx (3 mL) subcutaneous pen flash glucose scanning reader #1 each 12/06/19 12/24/19 Rx flash glucose sensor #2 each 12/06/19 12/24/19 Rx lactulose 10 gram/15 mL oral 10 gm PO BID 90 Days #2700 ml 12/11/19 12/31/19 Rx solution metoclopramide HCl 5 mg tablet 5 mg PO BID #60 tablet 12/24/19 12/31/19 Rx promethazine 25 mg tablet 25 mg PO TID PRN #60 tablet 12/24/19 12/31/19 Rx Allergies Allergy/AdvReac Type Severity Reaction Status Date / Time rosuvastatin Allergy Unknown Bradycardia Verified 12/24/19 11:04 [facility] Adv[facility]ac Severe nausea Verified 12/24/19 11:04 gabapentin AdvReac Unknown Dizziness Verified 12/24/19 11:04 meperidine AdvReac Unknown Vomiting Verified 12/24/19 11:04 Vital Signs Vital Signs - 24 hr 12/31/19 11:16 12/31/19 14:58 12/31/19 15:51 Temperature 36.6 C Pulse
[2019-12-31] MEDS: PANTOPRAZOLE 40 MG TABLET PO (20:46)
[2019-12-31] MEDS: METOCLOPRAMIDE HCL 5 MG TABLET PO (20:46)
[2019-12-31] MEDS: INSULIN DETEMIR 100 UNITS/ML 70 UNITS SUB-Q (20:50)
[2019-12-31 20:59] LABS: Glucose Point of Care 322 (65-105)
[2019-12-31 22:00] VITALS: BP 151/61; PULSE 67; RESP 16; TEMP 36.6; O2SAT 99
[2020-01-01] VITALS: BP 145/58; PULSE 69; RESP 16; TEMP 36.4; O2SAT 98
[2020-01-01 00:33] VITALS: BP 146/64; BP 156/58; PULSE 73; PULSE 80; RESP 16; O2SAT 100; O2SAT 98
[2020-01-01 06:00] VITALS: BP 125/62; PULSE 63; RESP 20; TEMP 37; O2SAT 99
[2020-01-01] MEDS: LACTULOSE 20 GM/30 ML UDC PO ×2 (06:32→15:08)
[2020-01-01 06:38] LABS: Basophils Percent Auto 0.4 % (0.2-1.2); Eosinophils Absolute Auto 0.1 K/mm3 (0-0.3); Eosinophils Percent Auto 3.5 % (0-4.4); Hematocrit 33.2 % (42.0-52.0); Hemoglobin 10.8 g/dL (14.0-18.0); Immature Granulocyte Absolute 0.01 K/mm3 (0.00-0.031); Immature Granulocyte Percent A 0.4 % (0-0.5); Lymphocytes Absolute Auto 0.79 K/mm3 (0.9-3.2); Lymphocytes Percent Auto 27.7 % (18.3-44.2); Mean Corpuscular HGB Conc 32.5 g/dl (32-36); Mean Corpuscular Hemoglobin 27.3 pg (26-34); Mean Corpuscular Volume 83.8 fl (80-100); Mean Platelet Volume 12.5 fl (7.4-10.4); Monocytes Absolute Auto 0.3 K/mm3 (0.1-0.6); Monocytes Percent Auto 9.8 % (2.6-8.5); Neutrophils Absolute Auto 1.7 K/mm3 (1.3-6.7); Neutrophils Percent Auto 58.2 % (45.5-73.1); Platelet Count Result 73 k/mm3 (150-375); Red Blood Count 3.96 M/mm3 (4.6-6.20); Red Cell Distribution Width 20.3 % (11.5-14.5); White Blood Count 2.9 K/mm3 (4.5-10.0)
[2020-01-01 06:51] LABS: Anion Gap 6 mmol/L (8-16); Blood Urea Nitrogen 26 mg/dL (9-20); Calcium 8.8 mg/dL (8.4-10.2); Carbon Dioxide 24 mmol/L (22-30); Chloride 106 mmol/L (98-107); Estimated CRCL calculation 95 ml/min; Estimated Glomerular Filt Rate > 60; Glucose 137 mg/dL (75-110); Magnesium 2.1 mg/dL (1.6-2.3); Potassium 3.9 mmol/L (3.4-5.0); Sodium 136 mmol/L (137-145)
[2020-01-01 08:00] VITALS: PULSE 63; RESP 20; O2SAT 99
[2020-01-01 08:32] LABS: Glucose Point of Care 130 (65-105)
[2020-01-01] MEDS: hydroCHLOROthiazide 12.5 MG CAPSULE PO (09:38)
[2020-01-01] MEDS: lisinopriL 20 MG TABLET PO (09:39)
[2020-01-01] MEDS: METOCLOPRAMIDE HCL 5 MG TABLET PO ×2 (09:39→18:28)
[2020-01-01 09:42] LABS: Ammonia 89 umol/L (9-30)
[2020-01-01] MEDS: INSULIN ASPART (*BKC) 100 UNITS/ML SUB-Q ×2 (12:17→18:26)
[2020-01-01 12:22] LABS: Glucose Point of Care 233 (65-105)
[2020-01-01] MEDS: rifAXIMin 550 MG TABLET PO (12:40)
[2020-01-01 14:00] VITALS: BP 151/76; PULSE 66; RESP 16; TEMP 36.3; O2SAT 99
--- NOTE | 2020-01-01 16:12 | PM.DS ---
DS: Admitting Diagnosis Admitting Diagnosis Admitting Diagnosis: intractable vomiting DS: Discharge Diagnosis Discharge Diagnosis (1) Nausea & vomiting: Qualifiers: Vomiting type: unspecified Vomiting Intractability: non-intractable Qualified Code(s): R11.2 - Nausea with vomiting, unspecified Code(s): R11.2 - Nausea with vomiting, unspecified Status: Resolved Assessment and Plan: ------resolved. Patient has had chronic intermittent nausea and vomiting. His gastric emptying study was normal today. This improved with the improvement of his hyperammonemia. He has known liver disease which is likely playing a factor. I also have asked him to keep a food journal to see if there is any pattern. He recently had an EGD and a colonoscopy with no issue. He should follow-up with GI. . (2) Hyperammonemia: Code(s): E72.20 - Disorder of urea cycle metabolism, unspecified Status: Acute Assessment and Plan: -----Continue Lactulose at the higher dose. 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 Continue home regimen (5) GERD (gastroesophageal reflux disease): Qualifiers: Esophagitis presence: esophagitis presence not specified Qualified Code(s): K21.9 - Gastro-esophageal reflux disease without esophagitis Code(s): K21.9 - Gastro-esophageal reflux disease without esophagitis Status: Chronic Assessment and Plan: -----continue Protonix. (6) HTN (hypertension): Qualifiers: Hypertension type: unspecified Qualified Code(s): I10 - Essential (primary) hypertension Code(s): I10 - Essential (primary) hypertension Status: Chronic Assessment and Plan: ------last blood pressure 151/76. Continue lisinopril and hydrochlorothiazide (7) Cirrhosis: Qualifiers: Hepatic cirrhosis type: alcoholic cirrhosis Ascites presence: with ascites Qualified Code(s): K70.31 - Alcoholic cirrhosis of liver with ascites Code(s): K74.60 - Unspecified cirrhosis of liver Status: Chronic Assessment and Plan: -----known, follow-up with GI. DS: Summary Hospital Course Reason for hospitalization: Intractable nausea vomiting Hospital Course: Patient is 64-year-old male who presented emergency room for nausea and vomiting intermittently throughout the last 6 months which seemed to be worse the last few days. Vitals in the ER were stable. CBC showed pancytopenia secondary to liver disease. BMP within normal limits with the exception of glucose 170. Ammonia 133, lipase 113. And bruising on his hip. Hip and pelvis x-ray was done which did not show any abnormality. Admitted to the hospitalist service and given lactulose. His ammonia and symptoms improved with this. He was started on rifaximin and saw GI. Dr. Gibson agreed with the plan. The patient plans to follow-up with him at discharge. Please see above for further details. Patient was educated about the worrisome signs and symptoms come back to emergency room for and was discharged in stable condition. Status at Discharge Functional status at discharge: independent ambulation Overall status at discharge: patient is back to baseline Time Spent with Patient Time attestation: Total time spent providing and/or coordinating discharge services:
--- NOTE | 2020-01-01 16:28 | WPDGICN ---
Assessment and Plan Assessment and plan (1) Encephalopathy due to ammonia: Code(s): T59.891A - Toxic effect of other specified gases, fumes and vapors, accidental (unintentional), initial encounter; G92 - Toxic encephalopathy Status: Acute Assessment and Plan: continue with lactulose, he is feeling much better now. Instructed to titrate to get 3-4 BM a day will add xifaxan as well (2) Cirrhosis: Qualifiers: Hepatic cirrhosis type: alcoholic cirrhosis Ascites presence: with ascites Qualified Code(s): K70.31 - Alcoholic cirrhosis of liver with ascites Code(s): K74.60 - Unspecified cirrhosis of liver Status: Chronic Assessment and Plan: probably COLUNGA (h/o DM, HTN), remote alcohol use more than [address] scan no HCC, EGD no more varices 2g na diet MELD score 11 he can follow up office in few more weeks (3) Diabetes: Qualifiers: Diabetes mellitus type: type 2 Diabetes mellitus intermediate school teacher insulin use: with intermediate school teacher use Diabetes mellitus complication status: without complication Qualified Code(s): E11.9 - Type 2 diabetes mellitus without complications; Z79.4 - moth exterminator (current) use of insulin Code(s): E11.9 - Type 2 diabetes mellitus without complications Status: Chronic Assessment and Plan: on insulin (4) Nausea & vomiting: Qualifiers: Vomiting type: unspecified Vomiting Intractability: non-intractable Qualified Code(s): R11.2 - Nausea with vomiting, unspecified Code(s): R11.2 - Nausea with vomiting, unspecified Status: Resolved Assessment and Plan: resolved, antiemetics prn gastric emptying study was normal (5) Hyperammonemia: Code(s): E72.20 - Disorder of urea cycle metabolism, unspecified Status: Acute (6) Thrombocytopenia: Code(s): D69.6 - Thrombocytopenia, unspecified Status: Acute Assessment and Plan: stable, from liver disease GI Consult Note Consult date/time: 01/01/20 16:28 Reason for consult: cirrhosis, nausea HPI: Roland Salas is a 64 year old male is my clinic patient that I have seen because cirrhosis, he used to be heavy drinker when much younger but quit about 35 years ago, denies illicits, hepatitis was negative. 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 I just performed EGD 11/2019 that did not show any varices, colonoscopy with TA polyp removed. He came to ER with more nausea than usual, also generalized weakness and history of falls. He also has DM on insulin, using lactulose because history of encephalopathy normally will have 2 BM a day. He was evaluated in the ER today andlabs demonstrated an elevated ammonia level of 133. Given lactulose and he is feeling much better, no more nausea and tolerated food. He is going home today. He also had gastric emptying study that was normal. Review of Systems Constitutional: Constitutional: Denies chills, Denies headache(s) and Reports lethargy Eyes: Eyes: Denies blurry vision ENT: Reports Normal hearing present, Denies headache(s) and Denies neck pain Cardiovascular: Cardiovascular: Denies chest pain and Denies dyspnea Respiratory: Respiratory: Denies dyspnea Gastrointestinal: Gastrointestinal: Reports no additional gastrointestinal complaints Genitourinary: Genitourinary: Denies dysuria Musculoskeletal: Musculoskeletal: Denies neck pain Integumentary/Breasts: Skin/Breast: Denies dry skin Neurologic: Reports Normal hearing present, Denies headache(s) and Denies weakness Psychiatric: Psychiatric: Denies anxiety Endocrine: Endocrine: Denies change in body appearance Hematologic/Lymphatic: Hematologic/Lymphatic: Denies easy bleeding Allergic/Immunologic: Allergic/Immunologic: Denies urticaria PMFSH Past Medical History Medical History Cirrhosis Diabetes Diabetes with retinopathy DM type 2 with diabetic background retinopa
[2020-01-01 18:04] LABS: Glucose Point of Care 257 (65-105)
[2020-01-01] MEDS: INSULIN DETEMIR 100 UNITS/ML 70 UNITS SUB-Q (18:27)
== END 2020-01-01 19:03 | disposition home or self-care (01) ==
LOC: ANHED 11:49 → ANH3MEDSUR 15:07
PROVIDERS: Emergency Medicine; Family Medicine; Physician Assistant; Admitting Provider Internal Medicine; Emergency Provider Emergency Medicine; PCP Family Medicine; Visit Provider Family Medicine
DX: R11.2 Nausea with vomiting, unspecified (principal); K70.31 Alcoholic cirrhosis of liver with ascites; E11.9 Type 2 diabetes mellitus without complications; K21.9 Gastro-esophageal reflux disease without esophagitis; E78.00 Pure hypercholesterolemia, unspecified; I10 Essential (primary) hypertension; M25.552 Pain in left hip; M79.631 Pain in right forearm; M19.021 Primary osteoarthritis, right elbow; M77.8 Other enthesopathies, not elsewhere classified; M85.852 Other specified disorders of bone density and structure, left thigh; W19.XXXA Unspecified fall, initial encounter; E72.20 Disorder of urea cycle metabolism, unspecified; D64.9 Anemia, unspecified; D69.6 Thrombocytopenia, unspecified
CPT/HCPCS: 36415; 73090; 73502; 78264; 80048; 80053; 81001; 82140; 83690; 83735; 85025; 85055; 85610; 85730; 99285; A9270; A9541; G0378; J1815

== ENCOUNTER 2020-02-25 13:51 | Emergency (ER) | payer MEDICARE, OTHER, SELFPAY ==
--- NOTE | ~2020-02-25 | XR_ITS ---
EXAMINATION: XR chest 1V portable DATE: 02/25/2020 15:03 INDICATION: Shortness of breath. COVID-19 positive. TECHNIQUE: A single frontal view of the chest was obtained. COMPARISON: Chest CT 10/31/2019, chest 2 views 08/27/2019 FINDINGS: The chest demonstrates clear lungs without pneumonia, pleural effusion, or pneumothorax. Th e heart size is normal. IMPRESSION: 1. No acute cardiopulmonary disease. Reviewed, dictated and finalized at location A. COMBER
[2020-02-25 13:57] VITALS: BP 136/47; PULSE 64; RESP 18; TEMP 36.9; O2SAT 99
[2020-02-25 14:35] VITALS: BP 159/60; PULSE 63; RESP 20; O2SAT 99
[2020-02-25] MEDS: SODIUM CHLORIDE 0.9% IV 1,000 ML 999 ML IV CONT ×2 (15:06→16:32)
--- NOTE | 2020-02-25 15:41 | ED.GENADULT ---
HPI - General Adult General Chief complaint: Upper Respiratory Infection <Saman Galo PA-C - Last Filed: 02/25/20 16:44> Stated complaint: SOB, COVID Positive, Sent by PCP <Saman Galo PA-C - Last Filed: 02/25/20 16:44> Time Seen by Provider: 02/25/20 14:27 <Saman Galo PA-C - Last Filed: 02/25/20 16:44> Source: patient and family <Saman Galo PA-C - Last Filed: 02/25/20 16:44> Mode of arrival: ambulatory <TOR Onofre Last Filed: 02/25/20 16:44> Limitations: no limitations <Saman Galo PA-C - Last Filed: 02/25/20 16:44> History of Present Illness HPI narrative: Patient is a 64-year-old male who presents with over 2 weeks of Covid symptoms patient is presenting with his who is also being seen patient notes he has some fatigue denies any vomiting diarrhea currently denies any chest pain notes some shortness of breath described as minimal in nature on arrival to emergency department is in the room in no distress <Saman Galo PA-C - Last Filed: 02/25/20 16:44> Related Data Allergies/adverse reactions: Allergies Allergy/AdvReac Type Severity Reaction Status Date / Time rosuvastatin Allergy Unknown Bradycardia Verified 12/24/19 11:04 dulaglutide [From [facility]] AdvReac Severe nausea Verified 12/24/19 11:04 gabapentin AdvReac Unknown Dizziness Verified 12/24/19 11:04 meperidine AdvReac Unknown Vomiting Verified 12/24/19 11:04 <Saman Galo PA-C - Last Filed: 02/25/20 16:44> Review of Systems Review of Systems: All systems reviewed & are unremarkable except as noted in HPI and below <Saman Galo PA-C - Last Filed: 02/25/20 16:44> [facility] Past Medical History Medical History: Medical History Cirrhosis Diabetes Diabetes with retinopathy 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 Encephalopathy due to ammonia Esophageal varices GERD (gastroesophageal reflux disease) High cholesterol HTN (hypertension) <Saman Galo PA-C - Last Filed: 02/25/20 16:44> Surgical History Surgical History: Surgical History Hx of appendectomy Hx of cholecystectomy <Saman Galo PA-C - Last Filed: 02/25/20 16:44> Family History Family History: Family History Father Patient's father is in good health Sibling Patient's brother is in good health Family history of arthritis <Saman Galo PA-C - Last Filed: 02/25/20 16:44> Social History Social History: Social History Social History: Smoking status: Never smoker Second hand tobacco smoke exposure: No Alcohol intake: former Substance use: never Substance use type: does not use Gender identity (if verbalized by the patient): Male Spiritual care concerns: No <Saman Galo PA-C - Last Filed: 02/25/20 16:44> Exam Narrative: Exam Narrative: GENERAL: Well-appearing, well-nourished, and in no acute distress. HEAD: Normocephalic, atraumatic. EYES: PERRLA and EOMI. ENT: Nares clear, no rhinorrhea or epistaxis. Mucous membranes moist. CHEST: Clear to auscultation. No respiratory distress. Slight crackles in the lung base HEART: Regular rate and rhythm. No murmur heard. EXTREMITIES: Normal range of motion. No edema. SKIN: Warm, dry, no rash. NEURO: No focal deficits. Alert and oriented x3. PSYCH: Normal mood and affect. <Saman Galo PA-C - Last Filed: 02/25/20 16:44> Course Course Emergency Course: Patient in the room is been hydrated evaluated and will be sent home no pneumonia normal vital signs ABCs stable patient was hydrated and advised to follow his sugars closely noting that he ate little today and did not take his medicine patient will be sent home for further evaluatio
[2020-02-25 15:45] LABS: Basophils Percent Auto 0.1 % (0.2-1.2); Eosinophils Percent Auto 0.2 % (0-4.4); Hematocrit 36.5 % (42.0-52.0); Hemoglobin 12.6 g/dL (14.0-18.0); Immature Granulocyte Absolute 0.05 K/mm3 (0.00-0.031); Immature Granulocyte Percent A 0.6 % (0-0.5); Immature Platelet Fraction Pct 9.9 % (0.9-11.2); Lymphocytes Absolute Auto 0.41 K/mm3 (0.9-3.2); Mean Corpuscular HGB Conc 34.5 g/dl (32-36); Mean Corpuscular Hemoglobin 29.4 pg (26-34); Mean Corpuscular Volume 85.3 fl (80-100); Monocytes Absolute Auto 0.7 K/mm3 (0.1-0.6); Monocytes Percent Auto 8.2 % (2.6-8.5); Neutrophils Percent Auto 85.9 % (45.5-73.1); Platelet Count Result 52 k/mm3 (150-375); Red Blood Count 4.28 M/mm3 (4.6-6.20); Red Cell Distribution Width 16.7 % (11.5-14.5); White Blood Count 8.2 K/mm3 (4.5-10.0)
[2020-02-25 15:54] LABS: Anion Gap 10 mmol/L (8-16); Blood Urea Nitrogen 28 mg/dL (9-20); Calcium 8.6 mg/dL (8.4-10.2); Carbon Dioxide 23 mmol/L (22-30); Chloride 104 mmol/L (98-107); Estimated CRCL calculation 109 ml/min; Estimated Glomerular Filt Rate > 60; Glucose 344 mg/dL (75-110); Potassium 4.1 mmol/L (3.4-5.0); Sodium 137 mmol/L (137-145)
[2020-02-25 15:57] LABS: Ovalocytes 1+ (NORMAL); Platelet Estimate Decreased (Adequate)
[2020-02-25 16:30] VITALS: BP 164/60; PULSE 61; RESP 20; O2SAT 100
== END 2020-02-25 17:23 | disposition home or self-care (01) ==
PROVIDERS: Emergency Medicine Emergency Medical Services; Emergency Provider Emergency Medicine
DX: U07.1 COVID-19 (principal); E86.0 Dehydration; E11.65 Type 2 diabetes mellitus with hyperglycemia; E11.319 Type 2 diabetes mellitus with unspecified diabetic retinopathy without macular edema; K21.9 Gastro-esophageal reflux disease without esophagitis; K74.60 Unspecified cirrhosis of liver; E78.00 Pure hypercholesterolemia, unspecified; I10 Essential (primary) hypertension
CPT/HCPCS: 36415; 71045; 80048; 85025; 85055; 96360; 96361; 99284; J7030